=== PATIENT | male | born 1980 | race Caucasian/White ===

== ENCOUNTER 2022-01-08 09:02 | Outpatient (CLI) | payer OTHER, SELFPAY ==
--- NOTE | ~2022-01-08 | XR_ITS ---
XR abdomen/kub 1V 01/08/2022 09:20 INDICATION: Gross hematuria TECHNIQUE: KUB COMPARISON: None FINDINGS: Bowel gas pattern is normal. There is no evidence of free air, mass, organomegaly, ascites or obstruction. No abnormal calculi are seen. The bones appear intact. There are cholecystectomy c lips. IMPRESSION: 1: No acute abdominal abnormality identified. Reviewed, dictated and finalized at location A.
--- NOTE | ~2022-01-08 | CT_ITS ---
EXAMINATION: CT abdomen pelvis wo/w con DATE: 01/08/2022 09:49 INDICATION: Gross hematuria TECHNIQUE: Computed tomography (CT) of the abdomen and pelvis was performed without and with 130 cc O mnipaque 350 intravenous contrast. The dose-length product was 3411.62 mGy-cm. Automated exposure con trol and iterative reconstruction technique were employed. COMPARISON: KUB dated 01/08/2022 FINDINGS: Lung bases are unremarkable. Heart size normal. No significant pleural or pericardial effus ion. There are cholecystectomy clips. Fatty infiltration of the liver. The spleen, pancreas, adrenal glands and kidneys are unremarkable. Normal appendix. Colonic diverticulosis without evidence for div erticulitis. Ureters are normal in course and caliber. Bladder is not well distended, although grossl y normal. No free air or free fluid. There is mild mesenteric stranding with a few mildly prominent m esenteric lymph nodes, nonspecific. No acute osseous abnormality. IMPRESSION: 1. No acute abdominal abnormality. No findings to account for hematuria. Reviewed, dictated and finalized at location A.
== END 2022-01-08 09:03 | disposition home or self-care (01) ==
PROVIDERS: PCP Family Medicine; Visit Provider Urology
DX: R31.0 Gross hematuria (principal)
CPT/HCPCS: 74018; 74178; Q9967